=== PATIENT | male | born 1945 | race Caucasian/White ===

== ENCOUNTER → 2019-05-06 | Outpatient (CLI) | payer MEDICARE, OTHER ==
--- NOTE | 2019-05-06 16:54 | PCVCIMAG ---
APPROVED REPORT Study performed: 05/06/2019 13:22:00 Exam: Stress Echocardiogram Indication: CAD , , Hypertension, Dyslipidemia Patient Location: Echo lab Stress Nurse: Madhuri Gutierrez RN Room #: 2 Status: routine Ht: 5 ft 4 in HR: 88 bpm BP: 156/92 mmHg Rhythm: NSR Medical History Medical History: CAD non obstructive, HTN,Dyslipidemia Cardiac Risk Factors: HTN, Hyperlipidemia Previous Cardiac Procedures: none Pretest Chest Pain Characteristics: No chest pain Exercise History: Physically active Physical Disabilities: bilateral hip replacements Procedure The patient underwent an Exercise Stress Test using the Torrie Protocol. Blood pressure, heart rate, and EKG were monitored. An Echocardiogram was performed by collision technician in four stages in quad fashion. At peak stress, four selected images were obtained and placed side by side with resting images for comparison. Stress Test Details Stress Test: Exercise stress testing was performed using a Torrie protocol. HR Resting HR: 88 bpmMax Heart Rate (APMHR): 149 bpm Max HR Achieved: 176 bpmTarget HR (85% APMHR): 126 bpm % of APMHR: 118 Recovery HR: 99 bpm HR response to stress: Normal HR response to stress BP Resting BP: 156/92 mmHg Max BP: 162/76 mmHg Recovery BP: 140/86 mmHg BP response to stress: Normal blood pressure response to stress. ECG Resting ECG: Sinus Rhythm, NSSTT changes Stress ECG: Sinus Rhythm ST Change: Ischemic, Downsloping ST depression Maximum ST Deviation: 1.5 mm Arrhythmia: Occasional PVCs Recovery ECG: Sinus Rhythm, ST-T abnormalities Recovery ST Change: Ischemic Recovery ST Deviation: 2.5 mm Clinical Reason for Termination: Maximal effort Stress Symptoms: fatigue Exercise duration: 11 min 18 sec Highest Stage Achieved: Stage 4: 4.2 mph at 16% grade. Overall Exercise Capacity for Age: Good Scale: Active Angina Score: None No complications. Stress ECG Conclusion The patient exercised according to the TORRIE protocol for 11:18 mins; achieving a work level of 13.4METS. The resting heart rate of 71bpm brook to a maximum heart rate of 176 bpm. This value represent 118% of the maximal, age-predicted heart rate. The resting blood pressure of 156/92 mmHg, brook to a maximum blood pressure of 168/96 mmHg. The exercise test was stopped due to fatigue. Burton Treadmill Score is 3.5 which is Moderate risk. Pre-Stress Echo The resting Echocardiogram showed normal left ventricular contractility with an estimated Ejection Fraction of about 55-60%. Post-Stress Echo The stress Echocardiogram showed abnormal left ventricular contractility with an estimated Ejection Fraction of about 50-55%. The stress Echocardiogram demonstrated wall motion abnormality in the septal, anterolateral and apical montalvo. LV dilatation post-exercise Conclusion Clinical Response: Non-ischemic Exercise Capacity: Superior Stress ECG Response: Ischemic Stress Echo Images: Ischemic Abnormal stress echocardiogram with maximal exercise stress. Moderate to high risk study Coronary angiography recommended No prior study available for comparison. <Conclusion> Abnormal stress echocardiogram with maximal exercise stress. Moderate to high risk study Coronary angiography recommended
== END ==
LOC: PCVCIMAG 13:16
PROVIDERS: ATTEND Internal Medicine
DX: I10 Essential (primary) hypertension (principal); R93.1 Abnormal findings on diagnostic imaging of heart and coronary circulation; E78.5 Hyperlipidemia, unspecified; Z87.891 Personal history of nicotine dependence
CPT/HCPCS: 93325; 93351; G0463

== ENCOUNTER → 2019-06-10 | Outpatient (CLI) | payer MEDICARE, OTHER | END | disposition home or self-care (01) | LOC: PCVCCLINIC 11:20 | PROVIDERS: ATTEND Internal Medicine | DX: I25.10 Atherosclerotic heart disease of native coronary artery without angina pectoris (principal); I10 Essential (primary) hypertension; E78.5 Hyperlipidemia, unspecified; M19.90 Unspecified osteoarthritis, unspecified site; Z95.1 Presence of aortocoronary bypass graft; Z86.2 Personal history of diseases of the blood and blood-forming organs and certain disorders involving the immune mechanism; Z79.899 Other long term (current) drug therapy; Z79.82 Long term (current) use of aspirin; Z87.891 Personal history of nicotine dependence | CPT/HCPCS: 93005; G0463 ==